=== PATIENT | female | born 1960 ===

== ENCOUNTER 2017-03-27 20:44 | Emergency (ER) | payer OTHER ==
[2017-03-27 20:44] VITALS: BMI 34.4
[2017-03-27] MEDS ORDERED: Piperacillin/Tazobact 3.375 gm 100 ML IVPB STA (22:11)
--- NOTE | 2017-03-27 22:37 | C.PDOC ---
History Of Present Illness 56 year old female presents to the ED for evaluation of right knee pain and swelling after she injured the area 1 week ago. Patient states she tripped, fell and landed onto her right knee. She has not been evaluated by her doctor. She reports to the ED for evaluation because her pain has persisted. She denies head injury, LOC, or any other injuries at this time. Time Seen by Provider: 03/27/17 21:56 Chief Complaint (Nursing): Lower Extremity Problem/Injury History Per: Patient History/Exam Limitations: no limitations Onset/Duration Of Symptoms: Other Current Symptoms Are (Timing): Still Present Additional History Per: Patient - Knee Description Of Injury: Fell (right) Past Medical History Reviewed: Historical Data, Nursing Documentation, Vital Signs Vital Signs: Last Vital Signs Temp 98.8 F 03/27/17 23:41 Pulse 69 03/27/17 23:41 Resp 18 03/27/17 23:41 BP 113/67 03/27/17 23:41 Pulse Ox 100 03/27/17 23:41 - Medical History PMH: Diabetes, Gastritis, HTN, Hypercholesterolemia, Hypothyroidism Denies: Chronic Kidney Disease Surgical History: No Surg Hx - [facility] Procedures DESTRUC-SHOULDER LES NEC (02/04/13) PERCUTAN NEEDLE BIOPSY OF BREAST (09/04/13) SHOULDER STRUCT DIVISION (02/04/13) Family History: States: Unknown Family Hx - Social History Hx Tobacco Use: No Hx Alcohol Use: No Hx Substance Use: No - Immunization History Hx Tetanus Toxoid Vaccination: No Hx Influenza Vaccination: No Hx Pneumococcal Vaccination: No Review Of Systems Musculoskeletal: Positive for: Other (right knee pain and swelling ) Physical Exam - Physical Exam Appears: Non-toxic, No Acute Distress Skin: Normal Color, Warm, Dry, Diaphoretic, Other (abrasion noted over anterior aspect of right knee ) Extremity: Normal ROM, Tenderness (to anterior aspect of right knee ), Capillary Refill (less than 2 seconds ), No Deformity, Swelling (to anterior aspect of right knee ), No Other (no palpable cords (+) redness and swelling to right anterior knee ) Neurological/Psych: Oriented x3, Normal Speech, Normal Cognition, Normal Sensation Gait: Steady ED Course And Treatment - Laboratory Results Result Diagrams: 03/27/17 22:39 03/27/17 22:39 O2 Sat by Pulse Oximetry: 98 (on RA ) Pulse Ox Interpretation: Normal Medical Decision Making Medical Decision Making: Assessment: cellulitis Progress: Labs and Right knee XR ordered and reviewed. Zosyn IVP administered. Preliminary XR reading shows no fracture or gas. Patient will be discharged home with diagnosis of cellulitis and is advised to follow up with her PMD within 1-2 days for further evaluation and/or return to the ED if symptoms persist or worsen. Disposition Counseled Patient/Family Regarding: Studies Performed, Diagnosis, Need For Followup, Rx Given - Disposition Referrals: [facility] [Outside] Disposition: HOME/ ROUTINE Disposition Time: 23:19 Condition: STABLE Additional Instructions: follow up with your doctor or medical clinic in 2 days call to make an appointment take medications as prescribed return to ER if symptoms worsens or progress Prescriptions: Amoxicillin/Clavulanate [Augmentin 875 MG-125 MG] 1 tab PO BID #20 tab Sulfamethoxazole/Trimethoprim [Bactrim DS 800 mg-160 mg] 1 tab PO BID #14 tab traMADol [Ultram] 50 mg PO TID PRN #12 tab PRN Reason: Pain, Moderate (4-7) Instructions: Cellulitis (ED) Forms: General Discharge Instructions, [facility] (Serbian), Work Excuse - Clinical Impression Clinical Impression: Cellulitis - Scribe Statement The provider has reviewed the documentation as recorded by the Scribe (Martha Boss) Provider Attestation: All medical record entries made by the Scribe were at my direction and personally dictated by me. I have reviewed the chart and agree that the record accurately reflects my personal performance of the history, physical exam, medical decision making, and the department course for this patient. I have also personally directed, reviewed, and agree with the discharge instructions and disposition.
[2017-03-27 22:45] LABS: BASO # 0.1 K/uL (0.0-0.2); EOS # 0.3 K/uL (0.0-0.7); EOS % 3.1 % (0.0-4.0); HEMOGLOBIN 11.9 g/dL (11.0-16.0); LYMPH # 2.1 K/uL (1.0-4.3); LYMPH % 22.4 % (20.0-40.0); MEAN CELL VOLUME 83.5 fL (81.0-99.0); MEAN CORPUSCULAR HEMOGLOBIN 27.9 pg (27.0-31.0); MEAN CORPUSCULAR HGB CONC 33.5 g/dL (33.0-37.0); MEAN PLATELET VOLUME 7.8 fL (7.2-11.7); MONO # 0.6 K/uL (0.0-0.8); MONO % 6.7 % (0.0-10.0); NEUT # 6.2 K/uL (1.8-7.0); NEUT % 66.8 % (50.0-75.0); NRBC % 0.1 % (0.0-2.0); RBC 4.26 Mil/uL (3.80-5.20); RED CELL DISTRIBUTION WIDTH 13.8 % (11.5-14.5); WHITE BLOOD COUNT 9.3 K/uL (4.8-10.8)
[2017-03-27] MEDS ORDERED: Piperacill/Tazo 3.375gm in Dex 3.375 GM/50 ML BAG IVPB ONE (23:00)
[2017-03-27 23:03] LABS: ALB/GLOB RATIO 1.2 (1.0-2.1); ALBUMIN 4.2 g/dL (3.5-5.0); ALT/SGPT 30 U/L (9-52); AST/SGOT 21 U/L (14-36); BLOOD UREA NITROGEN 17 mg/dL (7-17); CALCIUM 8.6 mg/dl (8.6-10.4); GFR AFRICAN-AMERICAN > 60; GFR NON-AFRICAN AMERICAN > 60
[2017-03-27 23:42] VITALS: BP 113/67; PULSE 69; RESP 18; TEMP 98.8
[2017-03-27 23:43] VITALS: O2SAT 98
--- NOTE | 2017-03-28 09:46 | RAD ---
PROCEDURE: Right Knee Radiographs. HISTORY: knee injury COMPARISON: None. FINDINGS: BONES: No acute fracture or destructive bony lesion identified. JOINTS: Joint space narrowing and limited osteophyte development is seen the medial femorotibial compartment with narrowing noted at the femorotibial compartment as well compatible degenerative joint disease. JOINT EFFUSION: None. OTHER FINDINGS: None. IMPRESSION: Degenerative joint disease. No acute fracture or dislocation.
== END 2017-03-27 23:41 | disposition home or self-care (01) ==
LOC: C.ER 20:44
DX: L03.115 Cellulitis of right lower limb (principal)
CPT/HCPCS: 73562; 80053; 85025; 96365; 99284; J2543

== ENCOUNTER 2017-11-11 17:54 | Emergency (ER) | payer SELFPAY ==
[2017-11-11 17:55] VITALS: BMI 34.4
[2017-11-11 18:14] VITALS: BP 119/71; PULSE 88; RESP 16; TEMP 98.6; O2SAT 98
--- NOTE | 2017-11-11 20:09 | C.PDOC ---
History Of Present Illness 57 year old male with history of cramping pain for the past 3 weeks presents to ED complaining of pain to right lateral thigh. Patient reports pain is often associated with swelling. Denies fever, trauma redness, numbness, weakness. Time Seen by Provider: 11/11/17 18:05 Chief Complaint (Nursing): Lower Extremity Problem/Injury History Per: Patient History/Exam Limitations: no limitations Onset/Duration Of Symptoms: Hrs Current Symptoms Are (Timing): Still Present Past Medical History Reviewed: Historical Data, Nursing Documentation, Vital Signs Vital Signs: Last Vital Signs Temp 98.6 F 11/11/17 18:12 Pulse 88 11/11/17 18:12 Resp 16 11/11/17 18:12 BP 119/71 11/11/17 18:12 Pulse Ox 98 11/11/17 20:12 - Medical History PMH: Diabetes, Gastritis, HTN, Hypercholesterolemia, Hypothyroidism Denies: Chronic Kidney Disease Surgical History: No Surg Hx - [facility] Procedures DESTRUC-SHOULDER LES NEC (02/04/13) PERCUTAN NEEDLE BIOPSY OF BREAST (09/04/13) SHOULDER STRUCT DIVISION (02/04/13) Family History: States: No Known Family Hx - Social History Hx Tobacco Use: No Hx Alcohol Use: No Hx Substance Use: No - Immunization History Hx Tetanus Toxoid Vaccination: No Hx Influenza Vaccination: No Hx Pneumococcal Vaccination: No Review Of Systems Except As Marked, All Systems Reviewed And Found Negative. Constitutional: Negative for: Fever Musculoskeletal: Positive for: Leg Pain (right lateral thigh) Neurological: Negative for: Weakness, Numbness Physical Exam - Physical Exam Appears: Non-toxic, No Acute Distress Skin: Warm, Dry Head: Atraumatic, Normacephalic Eye(s): bilateral: Normal Inspection Oral Mucosa: Moist Chest: Symmetrical Cardiovascular: Rhythm Regular Respiratory: Normal Breath Sounds Gastrointestinal/Abdominal: Soft, No Tenderness Extremity: Tenderness (slight tenderness to lateral right thigh ), No Swelling Neurological/Psych: Oriented x3, Normal Speech, Normal Cognition ED Course And Treatment O2 Sat by Pulse Oximetry: 98 (RA) Pulse Ox Interpretation: Normal Medical Decision Making Medical Decision Making: Plan: * Toradol Disposition - Disposition Referrals: [facility] [Outside] Disposition: HOME/ ROUTINE Disposition Time: 20:07 Condition: GOOD Additional Instructions: Follow up with the medical doctor within 1-2 days. Return if worsened. 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 - Scribe Statement The provider has reviewed the documentation as recorded by the Kaseyibe Lucho Victoria All medical record entries made by the Zayda were at my direction and personally dictated by me. I have reviewed the chart and agree that the record accurately reflects my personal performance of the history, physical exam, medical decision making, and the department course for this patient. I have also personally directed, reviewed, and agree with the discharge instructions and disposition.
--- NOTE | 2017-11-12 10:17 | RAD ---
Date of service: 11/11/2017 PROCEDURE: Pelvis right hip dated 11/11/2017 HISTORY: hip pain, COMPARISON: Correlation made with concurrent radiographs of the right femur. Comparison also made with CT scan abdomen pelvis 12/30/20112015 which imaged on the pelvis and both hips. The the TECHNIQUE: AP view of the pelvis and right hip as well as frogleg lateral view right hip performed. FINDINGS: No evidence of acute displaced fracture nor dislocation. The osseous structures appear intact. Both femoral heads appropriately located within the respective acetabula. No significant joint space narrowing. Tiny corticated bony density within the soft tissues adjacent to the right superolateral acetabular rim unchanged from prior study IMPRESSION: No evidence of acute displaced fracture nor dislocation. .
--- NOTE | 2017-11-12 10:18 | RAD ---
Date of service: 11/11/2017 PROCEDURE: Right femur. HISTORY: femur pain, COMPARISON: Comparison -correlation made with concurrent radiographs of the pelvis and right hip. Correlation also made with radiographs of the right knee 03/27/2017. TECHNIQUE: AP and lateral views of the right femur performed. FINDINGS: No evidence of acute displaced fracture nor dislocation. The osseous structures appear intact. Right femoral head appropriately located within the right acetabula. No significant joint space narrowing. Tiny corticated bony density within the soft tissues adjacent to the right superolateral acetabular rim unchanged from prior study IMPRESSION: No evidence of acute displaced fracture nor dislocation. The the the the the the the the
== END 2017-11-11 20:18 | disposition home or self-care (01) ==
LOC: C.ER 17:54
DX: S76.911A Strain of unspecified muscles, fascia and tendons at thigh level, right thigh, initial encounter (principal); X58.XXXA Exposure to other specified factors, initial encounter; E03.9 Hypothyroidism, unspecified; E11.9 Type 2 diabetes mellitus without complications; E78.00 Pure hypercholesterolemia, unspecified; I10 Essential (primary) hypertension
CPT/HCPCS: 73502; 73552; 85378; 96372; 99283; J1885

== ENCOUNTER 2018-03-08 11:05 | Emergency (ER) | payer OTHER ==
[2018-03-08 11:05] VITALS: BMI 34.4
[2018-03-08] MEDS ORDERED: Sodium Chloride 0.9% 1,000 ML IV ONE (11:46)
[2018-03-08 12:00] LABS: BASO % 0.7 % (0.0-2.0); EOS % 0.6 % (0.0-4.0); HEMOGLOBIN 13.5 g/dL (11.0-16.0); LYMPH % 23.5 % (20.0-40.0); MEAN CELL VOLUME 86.9 fL (81.0-99.0); MEAN CORPUSCULAR HGB CONC 32.2 g/dL (33.0-37.0); MEAN PLATELET VOLUME 8.4 fL (7.2-11.7); MONO # 0.4 K/uL (0.0-0.8); MONO % 9.9 % (0.0-10.0); NEUT # 2.9 K/uL (1.8-7.0); NEUT % 65.3 % (50.0-75.0); NRBC % 0.1 % (0.0-2.0); RBC 4.83 Mil/uL (3.80-5.20); RED CELL DISTRIBUTION WIDTH 13.8 % (11.5-14.5); WHITE BLOOD COUNT 4.4 K/uL (4.8-10.8)
[2018-03-08] MEDS ORDERED: Sodium Chloride 0.9% 1,000 ML ONE (12:11)
[2018-03-08 12:12] LABS: BLOOD UREA NITROGEN 21 mg/dL (7-17); CALCIUM 8.8 mg/dl (8.6-10.4); GFR NON-AFRICAN AMERICAN > 60
--- NOTE | 2018-03-08 12:35 | C.PDOC ---
History Of Present Illness 57 year old female presents to the ED complaining of flu-like symptoms associated with subjective fever, cough, bodyaches, sore throat, congestion, nausea, vomiting and diarrhea for the past 3 days. Denies any ear pain, chest pain, shortness of breath or abdominal pain. Time Seen by Provider: 03/08/18 11:25 Chief Complaint (Nursing): Flu-like Symptoms History Per: Patient History/Exam Limitations: no limitations Onset/Duration Of Symptoms: Days (3) Current Symptoms Are (Timing): Still Present Location Of Pain: Throat Associated Symptoms: Fever, Sore Throat, Cough, Nasal Congestion, Nausea, Vomiting, Diarrhea Ear Symptoms: Bilateral: None Past Medical History Reviewed: Historical Data, Nursing Documentation, Vital Signs Vital Signs: Last Vital Signs Temp 98.7 F 03/08/18 11:10 Pulse 99 H 03/08/18 11:10 Resp 17 03/08/18 11:10 BP 119/71 03/08/18 11:10 Pulse Ox 97 03/08/18 11:10 - Medical History PMH: Diabetes, Gastritis, HTN, Hypercholesterolemia, Hypothyroidism Denies: Chronic Kidney Disease Other Surgeries: Hx of surgeries - [facility] Procedures DESTRUC-SHOULDER LES NEC (02/04/13) PERCUTAN NEEDLE BIOPSY OF BREAST (09/04/13) SHOULDER STRUCT DIVISION (02/04/13) Family History: States: No Known Family Hx - Social History Hx Tobacco Use: No Hx Alcohol Use: No Hx Substance Use: No - Immunization History Hx Tetanus Toxoid Vaccination: No Hx Influenza Vaccination: No Hx Pneumococcal Vaccination: No Review Of Systems Constitutional: Positive for: Fever, Other (bodyaches ) ENT: Positive for: Nose Congestion, Throat Pain. Negative for: Ear Pain Respiratory: Positive for: Cough. Negative for: Shortness of Breath Gastrointestinal: Positive for: Nausea, Vomiting, Diarrhea. Negative for: Abdominal Pain Physical Exam - Physical Exam Appears: Non-toxic, Other (Ill-appearing ) Skin: Warm, Dry, No Rash Head: Normacephalic Eye(s): bilateral: Normal Inspection Ear(s): Bilateral: Normal Nose: Normal Oral Mucosa: Moist Tongue: Normal Appearing Lips: Normal Appearing Teeth: Normal Dentition Gingiva: Normal Appearing Throat: Normal, No Erythema, No Exudate Neck: Supple Chest: Symmetrical Cardiovascular: Rhythm Regular Respiratory: Normal Breath Sounds, No Rales, No Rhonchi, No Wheezing Gastrointestinal/Abdominal: Soft, No Tenderness Extremity: Bilateral: Atraumatic, Normal Color And Temperature, Normal ROM Neurological/Psych: Oriented x3, Normal Speech Gait: Steady ED Course And Treatment - Laboratory Results Result Diagrams: 03/08/18 11:56 03/08/18 11:56 O2 Sat by Pulse Oximetry: 97 (RA) Pulse Ox Interpretation: Normal Medical Decision Making Medical Decision Making: Plan - Bloodwork - Toradol 30mg IVP - Zofran 4mg IVP - Influenza A B Flu swab negative. All results discussed with patient. Advised supportive care for viral syndrome. Return to the ED for any new or worsening symptoms. Disposition - Disposition Disposition: HOME/ ROUTINE Disposition Time: 13:44 Condition: STABLE Additional Instructions: EMMA OLVERA, thank you for letting us take care of you today. Your provider was Salina Boles MD and you were treated for FEVER ,COUGH, VOMITING. The emergency medical care you received today was directed at your acute symptoms. If you were prescribed any medication, please fill it and take as directed. It may take several days for your symptoms to resolve. Return to the Emergency De partment if your symptoms worsen, do not improve, or if you have any other problems. Please contact your doctor or call one of the physicians/clinics you have been referred to that are listed on the Patient Visit Information form that is included in your discharge packet. Bring any paperwork you were given at discharge with you along with any medications you are taking to your follow up visit. Our treatment cannot replace ongoing medical care by a primary care provider outside of the emergency department. Thank you for allowing the [facility] team to be part of your care today. If you had an X-Ray or CT scan: A Radiologist will review the ED reading if any change in treatment is needed we will contact you. If you had a blood, urine, or wound culture: It will take several days for the results, if any change in treatment is needed we will contact you. If you had an STI test: It will take 48 hours for the results. Please call after 1 week if you have not heard back. Instructions: Viral Syndrome (DC) Forms: [facility] (Portuguese), Work Excuse - Clinical Impression Clinical Impression: Influenza-like illness - Scribe Statement The provider has reviewed the documentation as recorded by the Scribe Terese Paneque All medical record entries made by the Zayda were at my direction and personally dictated by me. I have reviewed the chart and agree that the record accurately reflects my personal performance of the history, physical exam, medical decision making, and the department course for this patient. I have also personally directed, reviewed, and agree with the discharge instructions and disposition.
[2018-03-08 14:03] VITALS: BP 100/48; PULSE 74; RESP 16; TEMP 98.6
[2018-03-08 19:17] VITALS: O2SAT 97
== END 2018-03-08 14:02 | disposition home or self-care (01) ==
LOC: C.ER 11:05
DX: J11.1 Influenza due to unidentified influenza virus with other respiratory manifestations (principal); I10 Essential (primary) hypertension; E78.00 Pure hypercholesterolemia, unspecified; E11.9 Type 2 diabetes mellitus without complications
CPT/HCPCS: 80048; 85025; 87804; 96361; 96374; 96375; 99283; J1885; J2405; J7030

== ENCOUNTER 2018-03-09 14:38 | Emergency (ER) | payer OTHER ==
[2018-03-09 14:39] VITALS: BMI 34.4
--- NOTE | 2018-03-09 14:52 | C.PDOC ---
History Of Present Illness 57 year old female presents to the ED complaining of flu-like symptoms associated with subjective fever, cough, body aches, sore throat, congestion, nausea, vomiting and diarrhea for the past 4 days. Patient seen in ED yesterday and states they did not give her a prescription. Patient requests prescription to make her feel better. Denies headache and any other associated symptoms. History Per: Patient History/Exam Limitations: no limitations Onset/Duration Of Symptoms: Days Current Symptoms Are (Timing): Still Present Past Medical History Reviewed: Historical Data, Nursing Documentation, Vital Signs - Medical History PMH: Diabetes, Gastritis, HTN, Hypercholesterolemia, Hypothyroidism Denies: Chronic Kidney Disease - [facility] Procedures DESTRUC-SHOULDER LES NEC (02/04/13) PERCUTAN NEEDLE BIOPSY OF BREAST (09/04/13) SHOULDER STRUCT DIVISION (02/04/13) Family History: States: Unknown Family Hx - Social History Hx Tobacco Use: No Hx Alcohol Use: No Hx Substance Use: No - Immunization History Hx Tetanus Toxoid Vaccination: No Hx Influenza Vaccination: No Hx Pneumococcal Vaccination: No Review Of Systems Constitutional: Positive for: Fever (subjective. ), Other (body aches. ) ENT: Positive for: Nose Congestion, Throat Pain (sore. ) Gastrointestinal: Positive for: Nausea, Vomiting, Diarrhea Physical Exam - Physical Exam Appears: Well, Non-toxic, No Acute Distress Skin: Normal Color, Warm, Dry Head: Atraumatic, Normacephalic Eye(s): bilateral: Normal Inspection Oral Mucosa: Moist Neck: Normal ROM, Supple Chest: Symmetrical, No Deformity Cardiovascular: Rhythm Regular, No Murmur Respiratory: Normal Breath Sounds, No Rales, No Rhonchi, No Wheezing Gastrointestinal/Abdominal: Normal Exam, Soft, No Tenderness Extremity: Normal ROM (x4) Neurological/Psych: Oriented x3, Normal Speech ED Course And Treatment O2 Sat by Pulse Oximetry: 96 (RA) Pulse Ox Interpretation: Normal Medical Decision Making Medical Decision Making: Plan: -Herberth mercado Progress/Update: Prior record reviewed, patient had labwork and rapid flu test done. Treated with IVF and Toradol Patient with multi-symptom complaints, likely viral. Patient appears non-toxic and in no distress. Rx given. Patient advised to rest, drink fluids and take medications for supportive treatment. Patient stable for discharge and given follow up instructions. Prescribed Motrin, Tessalon perles, Naproxen, and Flexeril. Disposition Counseled Patient/Family Regarding: Diagnosis, Need For Followup, Rx Given - Disposition Referrals: Fallon Seymour MD [Staff Provider] - Disposition: HOME/ ROUTINE Disposition Time: 15:00 Condition: STABLE Additional Instructions: Tienes enfermedad viral Yosi los medicamentos segn sea necesario para la tos y Motrin. 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 - Scribe Statement The provider has reviewed the documentation as recorded by the Scribe (Karen Jones) All medical record entries made by the Scribe were at my direction and personally dictated by me. I have reviewed the chart and agree that the record accurately reflects my personal performance of the history, physical exam, medical decision making, and the department course for this patient. I have also personally directed, reviewed, and agree with the discharge instructions and disposition.
[2018-03-09 14:58] VITALS: BP 120/74; PULSE 92; RESP 18; TEMP 99; O2SAT 96
== END 2018-03-09 15:21 | disposition home or self-care (01) ==
LOC: C.ER 14:38
DX: J11.1 Influenza due to unidentified influenza virus with other respiratory manifestations (principal)

== ENCOUNTER 2018-08-07 15:09 | Outpatient (CLI) | payer OTHER | END 2018-08-07 15:10 | disposition home or self-care (01) | LOC: C.MAMMO 15:09 | DX: Z12.31 Encounter for screening mammogram for malignant neoplasm of breast (principal) ==